=== PATIENT | male | born 1970 | race Caucasian/White ===

== ENCOUNTER 2022-07-20 11:31 | Inpatient (IN) | payer BC, SELFPAY ==
--- NOTE | ~2022-07-20 | US_ITS ---
EXAMINATION: US soft tissue LE LT DATE: 07/23/2022 14:14 INDICATION: Lateral left calf abscess. TECHNIQUE: Multiple grayscale and Doppler ultrasound images of the left lower limb were obtained. COMPARISON: None FINDINGS: In the lateral left calf, there is a heterogeneous hypoechoic mass measuring at least 9.5 x 2.0 cm. IMPRESSION: 1. Mass in the lateral left calf, consistent with abscess versus hematoma. Reviewed, dictated and finalized at location A.
[2022-07-20 11:35] VITALS: BP 135/93; PULSE 112; RESP 14; TEMP 37.3; O2SAT 100
--- NOTE | 2022-07-20 12:51 | ED.SKABFB ---
HPI - Skin/Abscess/Foreign Bdy General Chief complaint: Skin/Abscess/Foreign Body Stated complaint: R leg swelling and redness Time Seen by Provider: 07/20/22 13:24 Source: patient Mode of arrival: ambulatory Limitations: no limitations History of Present Illness HPI narrative: 51 years old white male presents with redness, swelling and pain of the left lower extremity after having a possible mosquito bite at work 1 week ago. Associated with fever, chills, lightheadedness, dizziness and weakness. Patient did not see any medical provider so far. 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 Last ibuprofen intake was last night Related Data Home Medications Medication Instructions Recorded Confirmed No Home Medications 07/20/22 07/20/22 Allergies Allergy/AdvReac Type Severity Reaction Status Date / Time bee pollen Allergy Mild Swelling Verified 07/20/22 12:47 of Lip/Tongue/Throat Review of Systems Review of Systems: All systems reviewed & are unremarkable except as noted in HPI and below PMFSH Family History Family History Other Diabetes mellitus Family history of malignant neoplasm Exam Narrative: General appearance: Well-developed, well-nourished Skin: Normal color, extensive erythematous changes, warm, tenderness of the left lower leg anteriorly with a boil like lesion at the center of it. Head: Normocephalic, nontraumatic Chest and respiratory: Airway patent, no respiratory distress, no accessory muscle use Heart: Regular rate/rhythm Vascular: Normal peripheral pulses, normal capillary refill. Musculoskeletal: Normal range of motion, nontender back Neurologic: Alert and oriented ?3, SHANK FAKER is normal as tested, no gross motor deficit Course Vital Signs Vital signs: Vital Signs Temperature 37.3 C 07/20/22 11:35 Pulse Rate 112 H 07/20/22 11:35 Respiratory Rate 14 07/20/22 11:35 Blood Pressure 135/93 H 07/20/22 11:35 Pulse Oximetry 100 07/20/22 11:35 Oxygen Delivery Room Air 07/20/22 11:35 Temperature 37.3 C 07/20/22 11:35 Pulse Rate 112 H 07/20/22 11:35 Respiratory Rate 14 07/20/22 11:35 Blood Pressure 135/93 H 07/20/22 11:35 Pulse Oximetry 100 07/20/22 11:35 Oxygen Delivery Room Air 07/20/22 11:35 MDM - Skin/Abscess/Foreign Bdy Lab Data Result diagrams: 07/20/22 13:31 07/20/22 13:31 Labs: Lab Results 07/20/22 07/20/22 Range/Units 13:31 13:31 WBC 22.0 H (4.5-10.0) K/mm3 RBC 4.78 (4.6-6.20) M/mm3 Hgb 15.1 (14.0-18.0) g/dL Hct 45.4 (42.0-52.0) % MCV 95.0 (80-100) fl MCH 31.6 (26-34) pg MCHC 33.3 (32-36) g/dl RDW 13.9 (11.5-14.5) % Plt Count 196 (150-375) k/mm3 MPV 10.6 H (7.4-10.4) fl Immature Gran % (Auto) 0.7 H (0-0.5) % Neut % (Auto) 79.9 H (45.5-73.1) % Lymph % (Auto) 4.2 L (18.3-44.2) % [place] % (Auto) 14.5 H (2.6-8.5) % Eos % (Auto) 0.3 (0-4.4) % Baso % (Auto) 0.4 (0.2-1.2) % Lymph # (Auto) 0.92 (0.9-3.2) K/mm3 [place] # (Auto) 3.2 H (0.1-0.6) K/mm3 Eos # (Auto) 0.1 (0-0.3) K/mm3 Baso # (Auto) 0.1 (0.0-0.1) K/mm3 Abs Immat Gran (auto) 0.15 H (0.00-0.031) K/mm3 Absolute Neuts (auto) 17.5 H (1.3-6.7) K/mm3 Absolute Nucleated RBC 0.0 (0.0-0.012) K/mm3 Nucleated RBC % 0.0 (0.0-0.2) % Sodium 134 L (137-145) mmol/L Potassium 4.1 (3.4-5.0) mmol/L Chloride 97 L (98-107) mmol/L Carbon Dioxide 28 (22-30) mmol/L Anion Gap 9 (8-16) mmol/L BUN 14 (9-20) mg/dL Creatinine 0.90 (0.7-1.3) mg/dL Estim Creat Clear Calc Not Reportable Estimated GF
[2022-07-20 13:36] LABS: Basophils Absolute Auto 0.1 K/mm3 (0.0-0.1); Basophils Percent Auto 0.4 % (0.2-1.2); Eosinophils Absolute Auto 0.1 K/mm3 (0-0.3); Eosinophils Percent Auto 0.3 % (0-4.4); Hematocrit 45.4 % (42.0-52.0); Hemoglobin 15.1 g/dL (14.0-18.0); Immature Granulocyte Absolute 0.15 K/mm3 (0.00-0.031); Immature Granulocyte Percent A 0.7 % (0-0.5); Lymphocytes Absolute Auto 0.92 K/mm3 (0.9-3.2); Lymphocytes Percent Auto 4.2 % (18.3-44.2); Mean Corpuscular HGB Conc 33.3 g/dl (32-36); Mean Corpuscular Hemoglobin 31.6 pg (26-34); Mean Platelet Volume 10.6 fl (7.4-10.4); Monocytes Absolute Auto 3.2 K/mm3 (0.1-0.6); Monocytes Percent Auto 14.5 % (2.6-8.5); Neutrophils Absolute Auto 17.5 K/mm3 (1.3-6.7); Neutrophils Percent Auto 79.9 % (45.5-73.1); Platelet Count Result 196 k/mm3 (150-375); Red Blood Count 4.78 M/mm3 (4.6-6.20); Red Cell Distribution Width 13.9 % (11.5-14.5)
[2022-07-20 13:46] LABS: Alanine Aminotransferase 45 U/L (6-50); Alkaline Phosphatase 119 U/L (38-126); Anion Gap 9 mmol/L (8-16); Aspartate Amino Transferase 40 U/L (17-59); Bilirubin,Total 0.4 mg/dL (0.2-1.3); Blood Urea Nitrogen 14 mg/dL (9-20); Calcium 9.2 mg/dL (8.4-10.2); Carbon Dioxide 28 mmol/L (22-30); Chloride 97 mmol/L (98-107); Estimated Glomerular Filt Rate > 60; Glucose 168 mg/dL (65-110); Potassium 4.1 mmol/L (3.4-5.0); Sodium 134 mmol/L (137-145)
--- NOTE | 2022-07-20 14:50 | PM.IMHP ---
H&P: HPI History of Present Illness Date/Time: 07/20/22 14:50 Chief Complaint: Skin abscess Narrative: Consistent 51-year-old male who stated that he had an infection to his left knee approximately 1 month ago and he completed a week's worth of antibiotics. The patient stated this past week he had a mosquito bite just below that and he scratched it. Over the last week he has been having a fever up to 102, chills, lightheadedness, dizziness and weakness. The left leg has increase in swelling and redness. The redness goes all way up to his knee from his foot. 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 The patient stated that when he had the 1st infection to the left knee, he would wear a knee pad but dirty water would get underneath of that knee pad. He is not up to date on his tetanus shot. He was taking ibuprofen for the fever and pain. He was given IV fluid, vancomycin and IV Tylenol. The patient is being admitted to inpatient services on the date of service of 07/20/2022 Review of Systems Review of Systems: See HPI All systems reviewed & are unremarkable except as noted in HPI and below Constitutional: Constitutional: Reports as per HPI and Reports no additional constitutional complaints Eyes: Eyes: Reports as per HPI and Reports no additional eye complaints ENT: Reports system reviewed and no additional complaints, except as documented and Reports Normal hearing present Cardiovascular: Cardiovascular: Reports no additional cardiovascular complaints Respiratory: Respiratory: Reports no additional respiratory complaints and Reports no additional respiratory complaints Gastrointestinal: Gastrointestinal: Reports as per HPI and Reports no additional gastrointestinal complaints Musculoskeletal: Musculoskeletal: Reports no additional musculoskeletal complaints Integumentary/Breasts: Skin/Breast: Reports system reviewed and no additional complaints, except as docu and Reports as per HPI Neurologic: Reports system reviewed and no additional complaints, except as documented, Reports as per HPI and Reports Normal hearing present Psychiatric: Psychiatric: Reports no additional psychiatric complaints and Reports as per HPI Endocrine: Endocrine: Reports no additional endocrine complaints Hematologic/Lymphatic: Hematologic/Lymphatic: Reports no additional hematologic/lymphatic complaints Allergic/Immunologic: Allergic/Immunologic: Reports no additional allergic/immunologic complaints [facility] Past Medical History Medical History (Updated 07/20/22 @ 15:48 by Tran Duran NP) Cellulitis Skin cancer screening Surgical History Surgical History (Updated 07/20/22 @ 15:31 by Tran Duran NP) No pertinent past surgical history Family History Family History Other Diabetes mellitus Family history of malignant neoplasm Social History Social History (Updated 07/20/22 @ 15:32 by Tran Duran NP) Social History: 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 He is with 1child. He is Social drinker. He denies smoking marijuana or illicit drugs. His is the durable power document review attorney for healthcare. Code status full code Smoking status: Never smoker Meds Home Medications and Allergies Home Medications Medication Instructions Recorded Confirmed Type No Home Medications 07/20/22 07/20/22 History Allergies Allergy/AdvReac Type Severity Reaction Status Date / Time bee pollen Allergy Mild Swelling Verified 07/20/22 12:47 of Lip/Tongue/Throat Vital Signs Vital Signs - 24 hr 07/20/22 11:35 Temperature 37.3 C Pulse Rate 112 H Respiratory Rate 14 Blood Pressure 135/93 H Pulse Oximetry 100 Oxygen Delivery Room Air Exam Const: General: cooperative, comfortable, no acute distress, well developed, alert, awake, Physically active and ill appearing Nutritional Appearance: average body habitus and
[2022-07-20 15:12] VITALS: BP 142/86; PULSE 102; RESP 16; TEMP 37.4; O2SAT 97
[2022-07-20 15:23] LABS: Lactic Acid Reflex 1.6 mmol/L (0.7-2.0)
[2022-07-20 15:58] LABS: CRP 40.9 mg/dL (<1.0)
[2022-07-20] MEDS: TETANUS,DIPHTHERIA,AC PERTUSSIS ADULT (0.5 ML) BOOSTRIX IM (16:16)
[2022-07-20 16:48] VITALS: BMI 30.4
--- NOTE | 2022-07-20 16:48 | PC.NURSE ---
This patient, Chalo Burch, was admitted to Medical Room 258-01. Patient/family oriented to hospital policies and general routines including ID bracelet, bed and alarms, visiting hours, pain management, procedures, bathroom and other care routines, personal items, smoking policy, room service/diet, and visiting hours. Information on how to activate the Rapid Response Team has been discussed. Patient/Family are encouraged to report perceived risks to care and to ask questions if they do not understand what they are told or what they should do.
[2022-07-20] MEDS: SODIUM CHLORIDE 0.9% IV 1,000 ML 125 ML IV CONT (16:59)
[2022-07-20] MEDS: metroNIDAZOLE 500 MG/ISO 100ML 500 MG/100 ML BAG 100 MG IVPB (17:00)
[2022-07-20 17:23] LABS: Glucose Point of Care 142 mg/dl (65-105)
[2022-07-20 17:26] VITALS: BP 128/80; PULSE 106; RESP 16; TEMP 36.4; O2SAT 97
[2022-07-20 21:39] VITALS: BP 103/59; PULSE 100; RESP 20; TEMP 36.3; O2SAT 98
[2022-07-21] MEDS: metroNIDAZOLE 500 MG/ISO 100ML 500 MG/100 ML BAG 100 MG IVPB ×3 (00:56→15:19)
[2022-07-21 05:42] LABS: Basophils Absolute Auto 0.1 K/mm3 (0.0-0.1); Basophils Percent Auto 0.3 % (0.2-1.2); Eosinophils Absolute Auto 0.2 K/mm3 (0-0.3); Hemoglobin 13.5 g/dL (14.0-18.0); Immature Granulocyte Absolute 0.29 K/mm3 (0.00-0.031); Immature Granulocyte Percent A 1.5 % (0-0.5); Lymphocytes Absolute Auto 1.42 K/mm3 (0.9-3.2); Lymphocytes Percent Auto 7.5 % (18.3-44.2); Mean Corpuscular HGB Conc 33.8 g/dl (32-36); Mean Corpuscular Volume 94.8 fl (80-100); Mean Platelet Volume 10.2 fl (7.4-10.4); Monocytes Absolute Auto 3.1 K/mm3 (0.1-0.6); Monocytes Percent Auto 16.3 % (2.6-8.5); Neutrophils Absolute Auto 13.9 K/mm3 (1.3-6.7); Neutrophils Percent Auto 73.4 % (45.5-73.1); Platelet Count Result 187 k/mm3 (150-375); Red Blood Count 4.22 M/mm3 (4.6-6.20); Red Cell Distribution Width 13.8 % (11.5-14.5); White Blood Count 18.9 K/mm3 (4.5-10.0)
[2022-07-21 05:54] LABS: Alanine Aminotransferase 37 U/L (6-50); Albumin Level 3.4 g/dL (3.5-5.1); Alkaline Phosphatase 118 U/L (38-126); Anion Gap 8 mmol/L (8-16); Aspartate Amino Transferase 27 U/L (17-59); Bilirubin,Total 0.5 mg/dL (0.2-1.3); Blood Urea Nitrogen 11 mg/dL (9-20); Calcium 8.1 mg/dL (8.4-10.2); Carbon Dioxide 25 mmol/L (22-30); Chloride 101 mmol/L (98-107); Estimated CRCL calculation 105 ml/min; Estimated Glomerular Filt Rate > 60; Glucose 135 mg/dL (65-110); Potassium 3.7 mmol/L (3.4-5.0); Sodium 134 mmol/L (137-145)
[2022-07-21 06:00] VITALS: BP 118/65; PULSE 94; RESP 20; TEMP 36.9; O2SAT 98
[2022-07-21 06:05] LABS: Hemoglobin A1C 5.8 % (<5.7)
[2022-07-21] MEDS: ENOXAPARIN 40 MG/0.4 ML SYRINGE SUB-Q (08:00)
[2022-07-21 08:11] LABS: Glucose Point of Care 115 mg/dl (65-105)
[2022-07-21 11:49] LABS: Glucose Point of Care 212 mg/dl (65-105)
[2022-07-21] MEDS: HYDROcodone/acetaminophen (*CRX) 5-325 MG TABLET 1 TAB PO (12:10)
[2022-07-21] MEDS: INSULIN ASPART (*BKC) 100 UNITS/ML SUB-Q (12:11)
[2022-07-21 14:00] VITALS: BP 109/60; PULSE 96; RESP 16; TEMP 36.8; O2SAT 98
--- NOTE | 2022-07-21 16:58 | PM.IMPN ---
Progress Note: A&P Assessment and Plan (1) Cellulitis: Code(s): L03.90 - Cellulitis, unspecified Status: Acute Assessment and Plan: Cellulitis of left lower extremity. 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 Continue to monitor CBC. Trend CRP. Patient remains afebrile. (2) Pre-diabetes: Code(s): R73.03 - Prediabetes Status: Acute Assessment and Plan: Patient with elevated random blood sugar. A1c evaluated and is 5.8 Monitor blood sugars during admission Will need education regarding dietary and lifestyle changes and outpatient PCP follow-up Subjective Date/time seen: 07/21/22 16:58 Interval history: Date of service: 07/21/2022 Chalo Burch is a 51-year-old male with a history of cellulitis who is seen in follow-up for cellulitis of the left lower extremity. He endorses left leg pain today. When he is resting in bed he states it is tolerable but if he up to walk and is bearing weight on the leg he has increased pain. He states there is no drainage or wounds. His leg feels very tight and full. He denies fevers or chills but states he sleeps hot and has been waking up sweaty. Denies nausea or vomiting. He is tolerating his diet today. He denies shortness of breath, cough, chest pain, dizziness, lightheadedness, weakness. Last bowel movement was 3 days ago. He denies diarrhea. Denies urinary symptoms including dysuria or hematuria. Review of Systems Review of Systems: All systems reviewed & are unremarkable except as noted in HPI and below Exam Narrative: General: Well-nourished, well-appearing 51-year-old male, sitting up in bed, comfortable, NARD Neuro: awake, alert and oriented x4, speech clear, no focal neuro deficits noted HEENMT: normocephalic, atraumatic, EOMI, sclerae anicteric, moist oral mucosa Respiratory: clear to auscultation bilaterally, nonlabored breathing Cardio: regular rate, regular rhythm with S1-S2 Abdomen: nondistended, normoactive bowel sounds, soft, nontender to palpation Extremities: Left lower extremity is markedly erythematous with 1+ edema, warm and mildly tender to palpation, RLE no edema, erythema, or tenderness to palpation, DP pulses 2+ bilaterally Skin: small blister on proximal left anterior calf, pinpoint scab on left knee, no rashes or lesions, warm and dry Psych: appropriate mood and affect, judgment and insight intact Objective Data Vital Signs Vital Signs: Vital Signs - 24 hr 07/20/22 17:26 07/20/22 20:00 07/20/22 21:39 Temperature 97.6 F 97.4 F L Pulse Rate 106 H 100 Respiratory Rate 16 20 Blood Pressure 128/80 103/59 L Pulse Oximetry 97 98 Oxygen Delivery Room Air 07/21/22 06:00 07/21/22 07:54 07/21/22 14:00 Temperature 98.4 F 98.2 F Pulse Rate 94 96 Respiratory Rate 20 16 Blood Pressure 118/65 109/60 Pulse Oximetry 98 98 Oxygen Delivery Room Air Intake/Output Intake/Output: Intake & Output 07/18/22 07/19/22 07/20/22 07/21/22 23:59 23:59 23:59 23:59 Intake Total 440 3000 Output Total 1400 Balance 440 1600 Meds/Results Medications: Active Medications Generic Name Dose Route Start Last Admin Trade Name Freq PRN Reason Stop Dose Admin Dextrose 12.5 gm 07/20/22 16:10 Dextrose 50% 25 Gm/50 Ml Syringe IV PUSH PRN PRN Hypoglycemia Protocol Enoxaparin Sodium 40 mg 07/21/22 09:00 07/21/22 08:00 Enoxaparin 40 Mg/0.4 Ml Syringe SUB-Q 40 mg DAILY DL Administration Glucagon 1 mg 07/20/22 16:10 Glucagon For Inj 1 Mg Vial IM PRN PRN Hypoglycemia Protocol Glucose 15 gm
[2022-07-21 17:15] LABS: Glucose Point of Care 125 mg/dl (65-105)
[2022-07-21] MEDS: FUROSEMIDE INJ 40 MG/4 ML VIAL 20 MG IV PUSH (17:29)
[2022-07-21] MEDS: ACETAMINOPHEN 325 MG TABLET 650 MG PO (19:54)
[2022-07-21 21:14] LABS: Glucose Point of Care 138 mg/dl (65-105)
[2022-07-21 22:12] VITALS: BP 126/84; PULSE 103; RESP 20; TEMP 37.1; O2SAT 98
[2022-07-22 06:11] LABS: Hemoglobin 13.6 g/dL (14.0-18.0); Mean Corpuscular Hemoglobin 31.3 pg (26-34); Mean Corpuscular Volume 92.2 fl (80-100); Mean Platelet Volume 10.1 fl (7.4-10.4); Platelet Count Result 222 k/mm3 (150-375); Red Blood Count 4.34 M/mm3 (4.6-6.20); Red Cell Distribution Width 13.9 % (11.5-14.5); White Blood Count 17.1 K/mm3 (4.5-10.0)
[2022-07-22 06:22] VITALS: BP 143/88; PULSE 92; RESP 18; TEMP 36.2; O2SAT 96
[2022-07-22 07:21] LABS: Anion Gap 8 mmol/L (8-16); Blood Urea Nitrogen 12 mg/dL (9-20); Calcium 8.7 mg/dL (8.4-10.2); Carbon Dioxide 27 mmol/L (22-30); Chloride 98 mmol/L (98-107); Estimated CRCL calculation 117 ml/min; Estimated Glomerular Filt Rate > 60; Glucose 107 mg/dL (65-110); Potassium 3.9 mmol/L (3.4-5.0); Sodium 133 mmol/L (137-145)
[2022-07-22] MEDS: ENOXAPARIN 40 MG/0.4 ML SYRINGE SUB-Q (08:27)
[2022-07-22 09:04] LABS: Glucose Point of Care 130 mg/dl (65-105)
[2022-07-22 10:36] LABS: Vancomycin Trough 6.4 ug/mL (10.0-20.0)
[2022-07-22] MEDS: ACETAMINOPHEN 325 MG TABLET 650 MG PO (11:34)
[2022-07-22 12:19] LABS: Glucose Point of Care 139 mg/dl (65-105)
--- NOTE | 2022-07-22 12:34 | PM.IMPN ---
Progress Note: A&P Assessment and Plan (1) Cellulitis: Code(s): L03.90 - Cellulitis, unspecified Status: Acute Assessment and Plan: Cellulitis of left lower extremity. 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 Continue to monitor CBC. Trend CRP. Patient remains afebrile. (2) Pre-diabetes: Code(s): R73.03 - Prediabetes Status: Acute Assessment and Plan: Patient with elevated random blood sugar. A1c evaluated and is 5.8 Monitor blood sugars during admission Will need education regarding dietary and lifestyle changes and outpatient PCP follow-up Subjective Date/time seen: 07/22/22 12:34 Interval history: Date of service: 07/21/2022 Chalo Burch is a 51-year-old male with a history of cellulitis who is seen in follow-up for cellulitis of the left lower extremity. He feels okay today. He states when he is resting in bed he is comfortable but if he sits up and has his legs dangling or if he iss walking his left leg pain becomes severe up to 10/10. His pain is so severe that she becomes nauseated and dizzy. This resolves when he lays back down. He reports intermittent sweats and subjective fevers but no documented fevers. He denies abdominal pain. He reports a regular bowel movement today, denies diarrhea. Reports frequent urination after receiving Lasix yesterday. Denies dysuria or hematuria. No shortness breath, cough, chest pain, palpitations. He states his left leg has a small wound that is now draining today. He states yesterday he was laying on his side with his right leg propped over his left leg and he believes the pressure of this opened up this wound. Review of Systems Review of Systems: All systems reviewed & are unremarkable except as noted in HPI and below Exam Narrative: General: Well-nourished, well-appearing 51-year-old male, sitting up in bed, comfortable, NARD Neuro: awake, alert and oriented x4, speech clear, no focal neuro deficits noted HEENMT: normocephalic, atraumatic, EOMI, sclerae anicteric, moist oral mucosa Respiratory: clear to auscultation bilaterally, nonlabored breathing Cardio: regular rate, regular rhythm with S1-S2 Abdomen: nondistended, normoactive bowel sounds, soft, nontender to palpation Extremities: Left lower extremity is markedly erythematous with 1+ edema extending to dorsum of left foot, warm and mildly tender to palpation, left knee and thigh with no erythema or edema, RLE no edema, erythema, or tenderness to palpation, DP pulses 2+ bilaterally Skin: Half dollar sized blistered area on proximal left anterolateral calf with scant serous fluid drainage, pinpoint dried scab on left knee, no rashes or lesions, warm and dry Psych: appropriate mood and affect, judgment and insight intact Objective Data Vital Signs Vital Signs: Vital Signs - 24 hr 07/21/22 14:00 07/21/22 20:00 07/21/22 22:12 Temperature 98.2 F 98.7 F Pulse Rate 96 103 H Respiratory Rate 16 20 Blood Pressure 109/60 126/84 Pulse Oximetry 98 98 Oxygen Delivery Room Air 07/22/22 06:22 07/22/22 08:27 Temperature 97.1 F L Pulse Rate 92 Respiratory Rate 18 Blood Pressure 143/88 H Pulse Oximetry 96 Oxygen Delivery Room Air Intake/Output Intake/Output: Intake & Output 07/19/22 07/20/22 07/21/22 07/22/22 23:59 23:59 23:59 23:59 Intake Total 440 3830 2380 Output Total 2300 2400 Balance 440 1530 -20 Meds/Results Medications: Active Medications Generic Name Dose Route Start Last Admin Trade Name Kevinq PRN Reason Stop Dose Admin Acetaminophen 650 mg 07/21/22 19:35 07/22/22 11:34 Ac
[2022-07-22 13:27] LABS: CRP 23.7 mg/dL (<1.0)
[2022-07-22 13:45] VITALS: BP 134/79; PULSE 104; RESP 16; TEMP 36.6; O2SAT 99
[2022-07-22] MEDS: HYDROcodone/acetaminophen (*CRX) 5-325 MG TABLET 1 TAB PO ×2 (16:31→22:35)
[2022-07-22 16:40] LABS: Glucose Point of Care 144 mg/dl (65-105)
[2022-07-22 21:20] VITALS: BP 121/81; PULSE 103; RESP 20; TEMP 36.1; O2SAT 98
[2022-07-22 23:15] LABS: Glucose Point of Care 141 mg/dl (65-105)
[2022-07-23] MEDS: KETOROLAC 30 MG/ML VIAL (*BKC) IV PUSH ×3 (00:24→21:10)
[2022-07-23 05:51] VITALS: BP 118/75; PULSE 82; RESP 20; TEMP 36.4; O2SAT 99
[2022-07-23 05:55] LABS: Hematocrit 40.9 % (42.0-52.0); Hemoglobin 13.6 g/dL (14.0-18.0); Mean Corpuscular HGB Conc 33.3 g/dl (32-36); Mean Corpuscular Hemoglobin 31.3 pg (26-34); Mean Platelet Volume 9.7 fl (7.4-10.4); Platelet Count Result 238 k/mm3 (150-375); Red Blood Count 4.35 M/mm3 (4.6-6.20); Red Cell Distribution Width 13.8 % (11.5-14.5); White Blood Count 15.1 K/mm3 (4.5-10.0)
[2022-07-23 06:27] LABS: Anion Gap 7 mmol/L (8-16); Blood Urea Nitrogen 15 mg/dL (9-20); CRP 14.5 mg/dL (<1.0); Carbon Dioxide 29 mmol/L (22-30); Chloride 98 mmol/L (98-107); Estimated CRCL calculation 105 ml/min; Estimated Glomerular Filt Rate > 60; Glucose 129 mg/dL (65-110); Sodium 134 mmol/L (137-145)
[2022-07-23] MEDS: ENOXAPARIN 40 MG/0.4 ML SYRINGE SUB-Q (07:45)
[2022-07-23 08:36] LABS: Glucose Point of Care 118 mg/dl (65-105)
[2022-07-23 12:08] LABS: Glucose Point of Care 131 mg/dl (65-105)
--- NOTE | 2022-07-23 12:26 | PM.IMPN ---
Progress Note: A&P Assessment and Plan (1) Cellulitis: Code(s): L03.90 - Cellulitis, unspecified Status: Acute Assessment and Plan: Cellulitis of left lower extremity. Failed outpatient clindamycin Continue vancomycin and cefepime Blood cultures pending, negative to date Possible fluid collection noted on examination today. Will get ultrasound to rule out abscess. Surgical consult (2) Pre-diabetes: Code(s): R73.03 - Prediabetes Status: Acute Assessment and Plan: Patient with elevated random blood sugar. A1c evaluated and is 5.8 Monitor blood sugars during admission Will need education regarding dietary and lifestyle changes and outpatient PCP follow-up Subjective Date/time seen: 07/23/22 12:26 No complaints, feeling better Exam Narrative: General: Well-nourished, well-appearing 51-year-old male, sitting up in bed, comfortable, NARD Neuro: awake, alert and oriented x4, speech clear, no focal neuro deficits noted HEENMT: normocephalic, atraumatic, EOMI, sclerae anicteric, moist oral mucosa Respiratory: clear to auscultation bilaterally, nonlabored breathing Cardio: regular rate, regular rhythm with S1-S2 Abdomen: nondistended, normoactive bowel sounds, soft, nontender to palpation Extremities: Left lower extremity is markedly erythematous with 1+ edema extending to dorsum of left foot, warm and mildly tender to palpation, left knee and thigh with no erythema or edema, RLE no edema, erythema, or tenderness to palpation, DP pulses 2+ bilaterally Skin: Half dollar sized blistered area on proximal left anterolateral calf with scant serous fluid drainage, pinpoint dried scab on left knee, no rashes or lesions, warm and dry Psych: appropriate mood and affect, judgment and insight intact Objective Data Vital Signs Vital Signs: Vital Signs - 24 hr 07/22/22 13:45 07/22/22 21:20 07/22/22 20:00 Temperature 97.9 F 97.0 F L Pulse Rate 104 H 103 H Respiratory Rate 16 20 Blood Pressure 134/79 121/81 Pulse Oximetry 99 98 Oxygen Delivery Room Air 07/23/22 05:51 07/23/22 07:52 Temperature 97.5 F L Pulse Rate 82 Respiratory Rate 20 Blood Pressure 118/75 Pulse Oximetry 99 Oxygen Delivery Room Air Intake/Output Intake/Output: Intake & Output 07/20/22 07/21/22 07/22/22 07/23/22 23:59 23:59 23:59 23:59 Intake Total 440 3830 4210 1780 Output Total 2300 2800 1200 Balance 440 1530 1410 580 Meds/Results Medications: Active Medications Generic Name Dose Route Start Last Admin Trade Name Freq PRN Reason Stop Dose Admin Acetaminophen 650 mg 07/22/22 12:37 Acetaminophen 325 Mg Tablet PO Q4H PRN Pain 1-5 Hydrocodone Bitart/Acetaminophen 1 tab 07/23/22 00:01 Hydrocodone/Acetaminophen (*Crx) 5-325 Mg Tablet PO Q4H PRN Pain Rated 7-10 Dextrose 12.5 gm 07/20/22 16:10 Dextrose 50% 25 Gm/50 Ml Syringe IV PUSH PRN PRN Hypoglycemia Protocol Enoxaparin Sodium 40 mg 07/21/22 09:00 07/23/22 07:45 Enoxaparin 40 Mg/0.4 Ml Syringe SUB-Q 40 mg DAILY DL Administration Glucagon 1 mg 07/20/22 16:10 Glucagon For Inj 1 Mg Vial IM PRN PRN Hypoglycemia Protocol Glucose 15 gm 07/20/22 16:10 Glucose Oral Gel 15 Gm Of Glucse In 37.5 Gm Tube PO PRN PRN Hypoglycemia Protocol Cefepime HCl 2 gm in 50 mls @ 100 mls/hr 07/20/22 21:00 07/23/22 07:45 Maxipime 2 Gm/D5w 50 Ml IVPB 07/30/22 09:29 100 mls/hr Q12HR DL Administration Dextrose 1,000 mls @ 100 mls/hr 07/20/22 16:10 Dextrose 5% 1,000 Ml IVPB PRN PRN Hypoglycemia Protocol Vancomycin HCl 1,500 mg in 500 mls @ 333.333 mls/hr 07/22/22 12:00 07/23/22 06:54 Vancomycin 1,500 Mg/D5w 500 Ml IVPB Infused Q8H DL Infusion Insulin Aspart 2 - 5 units 07/20/22 17:00 07/23/22 12:10 Insulin Aspart (*Bkc) 100 Units/Ml SUB-Q Not Given TIDWM DL Protocol Ketorolac Tr
[2022-07-23 14:10] VITALS: BP 118/69; PULSE 88; RESP 16; TEMP 36.2; O2SAT 98
--- NOTE | 2022-07-23 15:44 | PM.CNGS ---
Assessment and Plan Assessment and plan (1) Abscess of left leg: Code(s): L02.416 - Cutaneous abscess of left lower limb Status: Acute Assessment and Plan: Exam and soft tissue ultrasound consistent with left lower lateral leg abscess. Recommend proceeding with incision and drainage in the OR. Description of the procedure, risks, benefits, and expected wound care/recovery post-op were discussed with the patient in detail. All questions were answered. We will make the patient NPO after midnight and try adding him onto the surgery schedule tomorrow. Continue IV antibiotics. Cultures pending. (2) Cellulitis: Code(s): L03.90 - Cellulitis, unspecified Status: Acute Assessment and Plan: Overall cellulitis is improving. He has now developed a left lower leg abscess evident on exam and ultrasound. See plan above. Continue broad-spectrum IV antibiotics. Wound culture pending. Elevate left lower extremity. (3) Pre-diabetes: Code(s): R73.03 - Prediabetes Status: Acute Assessment and Plan: Elevated blood glucose noted on admission, hgb A1C 5.8. Recommend dietary and lifestyle modifications. Plan I have discussed the patient's case and plan of care with Dr. Cordon. Thank you for allowing us to see the patient in consultation and we will continue to follow along with you. History of Present Illness Consult details Consult date: 07/23/22 Reason for consult: other (Left lower leg cellulitis and possible abscess) Requesting physician: Giuseppe Langston MD Narrative: This is a 51-year-old male who presented to the ER with complaints of left lower extremity swelling, pain, and redness. He reports having a mosquito bite just below his left knee on his anterior lower leg that he first noticed 9 days ago. He scraped the top of the skin off over the mosquito bite and went to work. 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 Over the next few days, he had generalized malaise and felt feverish but never took his temperature. About 7 days ago, he began to notice swelling of the left lower leg. Over the next few days the swelling worsened and he started to notice redness. The area just below the knee that was an open wound began draining a few days ago. Due to his worsening symptoms, he presented to an urgent care and was instructed to go to the ED on 07/20/2022. [place] [id number]. He was found to have left lower extremity cellulitis and was admitted to the hospitalist service. He is on IV cefepime and vancomycin. Blood cultures were drawn and are pending. Yesterday, they obtained a wound culture of the left leg. His WBC count has been trending down and his cellulitis has come down in size, but he has developed an area on the left lateral lower leg that is concerning for an abscess. Our service has been consulted today. He had a soft tissue ultrasound of the left lower extremity today that showed a mass in the left lateral calf consistent with an abscess versus hematoma. The patient is now seen on the medical floor. Denies any history of MRSA. He does report having a wound on his left knee that was infected about 3 weeks ago. He had his pop what sounds like an abscess and ?picked out pus with tweezers?. He went to urgent care and was started on antibiotics. He reports this was completely healed before having the most recent episode of cellulitis. No history of diabetes and hemoglobin A1c checked on this admission was 5.8. Review of Systems Review of Systems: All systems reviewed & are unremarkable except as noted in HPI and below PMFSH Past Medical History Medical History Cellulitis Skin cancer screening Surgical History Surgical History No pertinent past surgical history
[2022-07-23] MEDS: HYDROcodone/acetaminophen (*CRX) 5-325 MG TABLET 1 TAB PO (17:03)
[2022-07-23 17:11] LABS: Glucose Point of Care 147 mg/dl (65-105)
[2022-07-23 19:42] VITALS: BP 118/80; PULSE 96; RESP 16; TEMP 37.3; O2SAT 97
[2022-07-23 21:23] LABS: Glucose Point of Care 124 mg/dl (65-105)
[2022-07-24] VITALS (10 sets, daily range): BP systolic 113–128; BP diastolic 73–94; PULSE 69–101; RESP 12–18; TEMP 35.8–36.8; O2SAT 95–100
[2022-07-24 05:48] LABS: Hematocrit 39.4 % (42.0-52.0); Hemoglobin 13.2 g/dL (14.0-18.0); Mean Corpuscular HGB Conc 33.5 g/dl (32-36); Mean Corpuscular Hemoglobin 31.4 pg (26-34); Mean Corpuscular Volume 93.6 fl (80-100); Mean Platelet Volume 9.4 fl (7.4-10.4); Platelet Count Result 276 k/mm3 (150-375); Red Blood Count 4.21 M/mm3 (4.6-6.20); Red Cell Distribution Width 14.1 % (11.5-14.5); White Blood Count 14.9 K/mm3 (4.5-10.0)
[2022-07-24 06:10] LABS: Estimated CRCL calculation 105 ml/min; Estimated Glomerular Filt Rate > 60
[2022-07-24 08:52] LABS: Glucose Point of Care 146 mg/dl (65-105)
[2022-07-24] MEDS: ACETAMINOPHEN 325 MG TABLET 650 MG PO (08:54)
--- NOTE | 2022-07-24 09:56 | PC.NURSE ---
This nurse spoke with Ophelia in Preop. Ok to hold patients Lovenox and Novolog for procedure.
--- NOTE | 2022-07-24 10:30 | PM.IMPN ---
Progress Note: A&P Assessment and Plan (1) Cellulitis: Code(s): L03.90 - Cellulitis, unspecified Status: Acute Assessment and Plan: Cellulitis of left lower extremity. Failed outpatient clindamycin Continue vancomycin and cefepime Blood cultures pending, negative to date Plan for I&D. Cultures noted. Continue IV antibiotics (2) Pre-diabetes: Code(s): R73.03 - Prediabetes Status: Acute Assessment and Plan: Patient with elevated random blood sugar. A1c evaluated and is 5.8 Monitor blood sugars during admission Will need education regarding dietary and lifestyle changes and outpatient PCP follow-up Subjective Date/time seen: 07/24/22 10:30 No complaints Exam Narrative: General: Well-nourished, well-appearing 51-year-old male, sitting up in bed, comfortable, NARD Neuro: awake, alert and oriented x4, speech clear, no focal neuro deficits noted HEENMT: normocephalic, atraumatic, EOMI, sclerae anicteric, moist oral mucosa Respiratory: clear to auscultation bilaterally, nonlabored breathing Cardio: regular rate, regular rhythm with S1-S2 Abdomen: nondistended, normoactive bowel sounds, soft, nontender to palpation Extremities: Left lower extremity is markedly erythematous with 1+ edema extending to dorsum of left foot, warm and mildly tender to palpation, left knee and thigh with no erythema or edema, RLE no edema, erythema, or tenderness to palpation, DP pulses 2+ bilaterally Skin: Half dollar sized blistered area on proximal left anterolateral calf with scant serous fluid drainage, pinpoint dried scab on left knee, no rashes or lesions, warm and dry Psych: appropriate mood and affect, judgment and insight intact Objective Data Vital Signs Vital Signs: Vital Signs - 24 hr 07/23/22 14:10 07/23/22 19:42 07/24/22 04:27 Temperature 97.1 F L 99.2 F 98.3 F Pulse Rate 88 96 93 Respiratory Rate 16 16 16 Blood Pressure 118/69 118/80 119/75 Pulse Oximetry 98 97 96 Intake/Output Intake/Output: Intake & Output 07/21/22 07/22/22 07/23/22 07/24/22 23:59 23:59 23:59 23:59 Intake Total 3830 4210 4910 550 Output Total 2300 2800 1850 600 Balance 1530 1410 3060 -50 Meds/Results Medications: Active Medications Generic Name Dose Route Start Last Admin Trade Name Freq PRN Reason Stop Dose Admin Acetaminophen 650 mg 07/22/22 12:37 07/24/22 08:54 Acetaminophen 325 Mg Tablet PO 650 mg Q4H PRN Administration Pain 1-5 Hydrocodone Bitart/Acetaminophen 1 tab 07/23/22 00:01 07/23/22 17:03 Hydrocodone/Acetaminophen (*Crx) 5-325 Mg Tablet PO 1 tab Q4H PRN Administration Pain Rated 7-10 Dextrose 12.5 gm 07/20/22 16:10 Dextrose 50% 25 Gm/50 Ml Syringe IV PUSH PRN PRN Hypoglycemia Protocol Enoxaparin Sodium 40 mg 07/21/22 09:00 07/24/22 08:54 Enoxaparin 40 Mg/0.4 Ml Syringe SUB-Q Not Given DAILY DL Glucagon 1 mg 07/20/22 16:10 Glucagon For Inj 1 Mg Vial IM PRN PRN Hypoglycemia Protocol Glucose 15 gm 07/20/22 16:10 Glucose Oral Gel 15 Gm Of Glucse In 37.5 Gm Tube PO PRN PRN Hypoglycemia Protocol Cefepime HCl 2 gm in 50 mls @ 100 mls/hr 07/20/22 21:00 07/24/22 09:30 Maxipime 2 Gm/D5w 50 Ml IVPB 07/30/22 09:29 Infused Q12HR LD Infusion Dextrose 1,000 mls @ 100 mls/hr 07/20/22 16:10 Dextrose 5% 1,000 Ml IVPB PRN PRN Hypoglycemia Protocol Vancomycin HCl 1,750 mg in 500 mls @ 250 mls/hr 07/23/22 14:00 07/24/22 08:00 Vancomycin 1,750 Mg/D5w 500 Ml IVPB Infused Q8H DL Infusion Insulin Aspart 2 - 5 units 07/20/22 17:00 07/24/22 08:52 Insulin Aspart (*Bkc) 100 Units/Ml SUB-Q Not Given TIDWM DL Protocol Polyethylene Glycol 17 gm 07/21/22 17:08 Polyethylene Glycol 3350 17 Gm Powd.Pack PO QAM PRN Constipation Radiology Results: ITS Impressions Soft Tissue Ultrasound 07/23/22 14:19 IMPRESSI
[2022-07-24 12:16] LABS: Glucose Point of Care 96 mg/dl (65-105)
--- NOTE | 2022-07-24 13:26 | PC.NURSE ---
To OR per [stretcher ], IV [saline locked ]. Report given to [Ophelia ].
--- NOTE | 2022-07-24 13:36 | WPDANESEPPF ---
Anes - Initial Pre Proc Eval Procedure: Operation Date: 07/24/22 14:30 Proposed Procedures p Incision And Drainage Left Lower Extremity Abscess - Dahiana Cordon MD Date/Time: 07/24/22 13:36 Surgeon: Rohith Mackay MD Pre Op Diagnosis: Left lower extremity cellulitis Patient Data Age: 51 Gender: M Height: 1.83 m Weight: 101.6 kg Last Vital Signs Temp 36.8 C 07/24/22 04:27 Pulse 93 07/24/22 04:27 Resp 16 07/24/22 04:27 BP 119/75 07/24/22 04:27 Pulse Ox 96 07/24/22 04:27 O2 Del Method Room Air 07/24/22 08:00 Allergies Allergy/AdvReac Type Severity Reaction Status Date / Time bee pollen Allergy Mild Swelling Verified 07/20/22 12:47 of Lip/Tongue/Throat Home Medications Medication Instructions Recorded Confirmed Type No Home Medications 07/20/22 07/20/22 History Laboratory Tests 07/23/22 07/23/22 07/24/22 17:04 21:12 05:26 WBC RBC Hgb Hct MCV MCH MCHC RDW Plt Count MPV Creatinine 0.90 mg/dL mg/dL (0.7-1.3) Estim Creat Clear Calc 105 ml/min ml/min Estimated GFR > 60 (59 - ) POC Capillary Glucose 147 mg/dl H mg/dl 124 mg/dl H mg/dl (65-105) (65-105) Vancomycin Trough 07/24/22 07/24/22 07/24/22 05:26 08:40 12:11 WBC 14.9 K/mm3 H K/mm3 (4.5-10.0) RBC 4.21 M/mm3 L M/mm3 (4.6-6.20) Hgb 13.2 g/dL L g/dL (14.0-18.0) Hct 39.4 % L % (42.0-52.0) MCV 93.6 fl fl (80-100) MCH 31.4 pg pg (26-34) MCHC 33.5 g/dl g/dl (32-36) RDW 14.1 % % (11.5-14.5) Plt Count 276 k/mm3 k/mm3 (150-375) MPV 9.4 fl fl (7.4-10.4) Creatinine Estim Creat Clear Calc Estimated GFR POC Capillary Glucose 146 mg/dl H mg/dl 96 mg/dl mg/dl (65-105) (65-105) Vancomycin Trough 07/24/22 12:49 WBC RBC Hgb Hct MCV MCH MCHC RDW Plt Count MPV Creatinine Estim Creat Clear Calc Estimated GFR POC Capillary Glucose Vancomycin Trough Pending Patient hx anesthesia problems: none Family hx anesthesia problems: none Results Review: All pre-operative results and documents have been reviewed as part of the pre-operative evaluation. 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 He is with 1child. He is Social drinker. He denies smoking marijuana or illicit drugs. His is the durable power commercial attorney for healthcare. Code status full code Smoking status: Never smoker Alcohol intake: current Drinks per week: 2 Substance use: current Substance use type: marijuana Last use: Last week Spiritual care concerns: No Anes - Eval Final PreProcedure Day of Procedure 07/24/22 13:36 Patient weight: obese Heart: regular rate and rhythm Lungs: clear to auscultation and normal air movement Airway: Mallampati scale class II Neurological: alert and oriented Last oral intake: >/= 8 hours ASA classification: II Emergent: no Anesthetic plan: proceed Anesthesia type and monitoring: general GIVS and LMA Results Review: All pre-operative results and documents have been reviewed as part of the pre-operative evaluation.
[2022-07-24 14:18] LABS: Vancomycin Trough 15.7 ug/mL (10.0-20.0)
--- NOTE | 2022-07-24 14:41 | WPDHPUPDATE1 ---
History and Physical Update Update Date/Time: 07/24/22 14:41 History and Physical has been reviewed, including an updated exam of the patient. There are NO changes in the patient's condition. Risks, benefits, and alternatives have been discussed and questions answered. Patient agrees to proceed with procedure.
[2022-07-24] MEDS: LACTATED RINGERS 1,000 ML 30 ML IV CONT (15:45)
[2022-07-24 16:17] LABS: Glucose Point of Care 128 mg/dl (65-105)
--- NOTE | 2022-07-24 16:30 | W.PM.PROC2 ---
Procedure Note - Detailed Date of Procedure 07/24/22 Pre-op Diagnosis Left lower extremity abscess Post-op Diagnosis Other ( Necrotizing soft tissue infection left lower extremity) Procedure Performed complex incision and drainage necrotizing soft tissue infection left lower extremity measuring 15 x 10 cm Surgeon Dahiana Cordon MD Anesthesia General Indications 51-year-old male presenting with left lower extremity abscess, cellulitis worsening over the last week Findings 15 x 10 cm abscess cavity with necrosis of the soft tissue Description of Procedure The patient was taken the operating room and placed in the supine position. After adequate induction of general anesthesia, the patient was prepped and draped in the normal sterile fashion. A time-out was then done to verify the patient's identity, as well as the procedure being performed. I then localized the tissue over the most fluctuant area of this abscess, located on the lateral portion of the calf in the left lower extremity. Of note, there was a punctate opening that was draining some purulent material and I did make the incision over this area. Once the area was opened, a copious amount of purulent drainage was noted. Sterile cultures were then obtained. Approximately 200 mL of purulent material was drained from this cavity. The cavity extended inferiorly towards the ankle and laterally towards the posterior calf. There was also noted necrosis of the subcutaneous tissue creating a plane between the subcutaneous tissue and skin and the underlying fascia and muscle. The infection did not seem to extend into the fascia or muscle. I used the hemostat as well as the suction device to break up further loculation and drained further purulent material. Once the area was completely open and drained, it measured approximately 15 x 10 cm. I then packed the area with 1 in iodoform to keep the area open and draining. Sterile dressing was then placed. The patient tolerated the procedure well and was extubated in the operating room postoperative. He will be transferred to the recovery room in stable condition. Implants 1 in iodoform packing Estimated Blood Loss 10 Urine Output 600 Packing Yes Pathology None sent Complications No immediate complications Condition Stable Disposition PACU [facility] Billing Surgery - Charge Forward: Surgery Billing
[2022-07-24 17:35] LABS: Glucose Point of Care 157 mg/dl (65-105)
--- NOTE | 2022-07-24 17:44 | PC.NURSE ---
Returned from OR per [stretcher at 17:35]. Report received from [Adams ].
[2022-07-24 20:58] LABS: Glucose Point of Care 270 mg/dl (65-105)
[2022-07-25 04:53] VITALS: BP 102/66; PULSE 65; RESP 20; TEMP 36.4; O2SAT 99
[2022-07-25 04:56] LABS: Hematocrit 38.8 % (42.0-52.0); Mean Corpuscular HGB Conc 33.5 g/dl (32-36); Mean Corpuscular Hemoglobin 31.3 pg (26-34); Mean Corpuscular Volume 93.5 fl (80-100); Mean Platelet Volume 9.5 fl (7.4-10.4); Platelet Count Result 331 k/mm3 (150-375); Red Blood Count 4.15 M/mm3 (4.6-6.20); Red Cell Distribution Width 13.7 % (11.5-14.5); White Blood Count 13.6 K/mm3 (4.5-10.0)
[2022-07-25 05:17] LABS: Anion Gap 5 mmol/L (8-16); Blood Urea Nitrogen 14 mg/dL (9-20); Calcium 8.9 mg/dL (8.4-10.2); Carbon Dioxide 27 mmol/L (22-30); Chloride 101 mmol/L (98-107); Estimated CRCL calculation 133 ml/min; Estimated Glomerular Filt Rate > 60; Glucose 136 mg/dL (65-110); Sodium 133 mmol/L (137-145)
--- NOTE | 2022-07-25 08:34 | WPDANESPN ---
Anes - Prog Note Post-Op Date/Time: 07/25/22 08:34 Cardiovascular status: normal Respiratory status: normal Airway patency: baseline Mental status: baseline Post-Op hydration status: normal Vital Signs: Last Vital Signs Temp 36.4 C 07/25/22 04:53 Pulse 65 07/25/22 04:53 Resp 20 07/25/22 04:53 BP 102/66 07/25/22 04:53 Pulse Ox 99 07/25/22 04:53 O2 Del Method Room Air 07/24/22 17:05 O2 Flow Rate 8 07/24/22 16:20 Pain Score (VAS): 12/09 I/O: Intake & Output 07/24/22 07/25/22 07/25/22 23:59 07:59 15:59 Intake Total 2240 490 Output Total 975 2200 Balance 1265 -1710 Laboratory Tests 07/25/22 04:38 07/25/22 04:38 07/24/22 07/24/22 07/24/22 08:40 12:11 12:49 WBC RBC Hgb Hct MCV MCH MCHC RDW Plt Count MPV Sodium Potassium Chloride Carbon Dioxide Anion Gap BUN Creatinine Estim Creat Clear Calc Estimated GFR Glucose POC Capillary Glucose 146 H 96 Calcium Vancomycin Trough 15.7 07/24/22 07/24/22 07/24/22 16:14 17:31 20:54 WBC RBC Hgb Hct MCV MCH MCHC RDW Plt Count MPV Sodium Potassium Chloride Carbon Dioxide Anion Gap BUN Creatinine Estim Creat Clear Calc Estimated GFR Glucose POC Capillary Glucose 128 H 157 H 270 H Calcium Vancomycin Trough 07/25/22 07/25/22 04:38 04:38 WBC 13.6 H RBC 4.15 L Hgb 13.0 L Hct 38.8 L MCV 93.5 MCH 31.3 MCHC 33.5 RDW 13.7 Plt Count 331 MPV 9.5 Sodium 133 L Potassium 5.0 Chloride 101 Carbon Dioxide 27 Anion Gap 5 L BUN 14 Creatinine 0.70 Estim Creat Clear Calc 133 Estimated GFR > 60 Glucose 136 H POC Capillary Glucose Calcium 8.9 Vancomycin Trough Microbiology 07/22/22 13:25 Leg Left Wound Culture - Preliminary Staphylococcus aureus Post-procedural complaints: none Patient Feedback: Patient satisfied with anesthetic care.
[2022-07-25 08:35] LABS: Glucose Point of Care 212 mg/dl (65-105)
[2022-07-25] MEDS: ENOXAPARIN 40 MG/0.4 ML SYRINGE SUB-Q (08:53)
[2022-07-25] MEDS: INSULIN ASPART (*BKC) 100 UNITS/ML SUB-Q (08:54)
[2022-07-25 09:13] VITALS: RESP 20; O2SAT 99
--- NOTE | 2022-07-25 10:15 | PM.IMPN ---
Progress Note: A&P Assessment and Plan (1) Cellulitis: Code(s): L03.90 - Cellulitis, unspecified Status: Acute Assessment and Plan: Cellulitis of left lower extremity. Failed outpatient clindamycin Continue IV antibiotics Blood cultures pending, negative to date Plan for I&D. Cultures noted. Continue IV antibiotics (2) Pre-diabetes: Code(s): R73.03 - Prediabetes Status: Acute Assessment and Plan: Patient with elevated random blood sugar. A1c evaluated and is 5.8 Monitor blood sugars during admission Will need education regarding dietary and lifestyle changes and outpatient PCP follow-up Subjective Date/time seen: 07/25/22 10:15 no new complaints Exam Narrative: General: Well-nourished, well-appearing 51-year-old male, sitting up in bed, comfortable, NARD Neuro: awake, alert and oriented x4, speech clear, no focal neuro deficits noted HEENMT: normocephalic, atraumatic, EOMI, sclerae anicteric, moist oral mucosa Respiratory: clear to auscultation bilaterally, nonlabored breathing Cardio: regular rate, regular rhythm with S1-S2 Abdomen: nondistended, normoactive bowel sounds, soft, nontender to palpation Extremities: Left lower extremity is markedly erythematous with 1+ edema extending to dorsum of left foot, warm and mildly tender to palpation, left knee and thigh with no erythema or edema, RLE no edema, erythema, or tenderness to palpation, DP pulses 2+ bilaterally Skin: Half dollar sized blistered area on proximal left anterolateral calf with scant serous fluid drainage, pinpoint dried scab on left knee, no rashes or lesions, warm and dry Psych: appropriate mood and affect, judgment and insight intact Objective Data Vital Signs Vital Signs: Vital Signs - 24 hr 07/24/22 13:30 07/24/22 16:05 07/24/22 16:20 Temperature 97.8 F 98.1 F Pulse Rate 87 101 H 85 Respiratory Rate 16 12 15 Blood Pressure 127/89 124/94 H 118/92 H Pulse Oximetry 98 100 98 Oxygen Delivery Room Air Simple Face Mask Simple Face Mask Oxygen Flow Rate 8 8 07/24/22 16:35 07/24/22 16:50 07/24/22 17:05 Temperature Pulse Rate 84 80 77 Respiratory Rate 12 16 13 Blood Pressure 118/89 113/86 117/91 H Pulse Oximetry 95 97 95 Oxygen Delivery Room Air Room Air Room Air Oxygen Flow Rate 07/24/22 17:30 07/24/22 17:45 07/24/22 20:41 Temperature 97.8 F 97.7 F 96.5 F L Pulse Rate 69 83 80 Respiratory Rate 16 16 18 Blood Pressure 119/82 128/82 117/73 Pulse Oximetry 99 98 98 Oxygen Delivery Oxygen Flow Rate 07/25/22 04:53 07/25/22 09:13 Temperature 97.6 F Pulse Rate 65 Respiratory Rate 20 20 Blood Pressure 102/66 Pulse Oximetry 99 99 Oxygen Delivery Room Air Oxygen Flow Rate Intake/Output Intake/Output: Intake & Output 07/22/22 07/23/22 07/24/22 07/25/22 23:59 23:59 23:59 23:59 Intake Total 4210 4910 2840 1760 Output Total 2800 1850 1575 2200 Balance 1410 3060 1265 -440 Meds/Results Medications: Active Medications Generic Name Dose Route Start Last Admin Trade Name Freq PRN Reason Stop Dose Admin Acetaminophen 650 mg 07/22/22 12:37 07/24/22 08:54 Acetaminophen 325 Mg Tablet PO 650 mg Q4H PRN Administration Pain 1-5 Hydrocodone Bitart/Acetaminophen 1 tab 07/23/22 00:01 07/23/22 17:03 Hydrocodone/Acetaminophen (*Crx) 5-325 Mg Tablet PO 1 tab Q4H PRN Administration Pain Rated 7-10 Dextrose 12.5 gm 07/20/22 16:10 Dextrose 50% 25 Gm/50 Ml Syringe IV PUSH PRN PRN Hypoglycemia Protocol Enoxaparin Sodium 40 mg 07/21/22 09:00 07/25/22 08:53 Enoxaparin 40 Mg/0.4 Ml Syringe SUB-Q 40 mg DAILY DL Administration Glucagon 1 mg 07/20/22 16:10 Glucagon For Inj 1 Mg Vial IM PRN PRN Hypoglycemia Protocol Glucose 15 gm 07/20/22 16:10 Glucose Oral Gel 15 Gm Of Glucse In 37.5 Gm Tube PO PRN PRN Hypoglycemia Protocol Cefepime HCl 2 gm in 50 mls @ 100
[2022-07-25] MEDS: HYDROcodone/acetaminophen (*CRX) 5-325 MG TABLET 1 TAB PO ×2 (10:49→20:18)
--- NOTE | 2022-07-25 10:51 | PM.PNGS ---
Progress Note: A&P Assessment and Plan (1) Necrotizing soft tissue infection: Code(s): M79.89 - Other specified soft tissue disorders Status: Acute Assessment and Plan: much improved, cont local wound care, cx reviewed and c/w MRSA, agree c Rocephin and Vanc Subjective Subjective Date/Time Seen: 07/25/22 10:51 feels much better, very little pain Review of Systems Review of Systems: All systems reviewed & are unremarkable except as noted in HPI and below Exam Const: General: cooperative, comfortable and no acute distress Resp: Auscultation: clear to auscultation bilaterally Cardio: Rate: regular rate Rhythm: regular rhythm GI: Inspection: normal to inspection Skin: Other: LLE - unpacked, good drainage, significantly decreased induration, redness Objective Data Vital Signs Vital Signs: Vital Signs - 24 hr 07/24/22 13:30 07/24/22 16:05 07/24/22 16:20 Temperature 36.6 C 36.7 C Pulse Rate 87 101 H 85 Respiratory Rate 16 12 15 Blood Pressure 127/89 124/94 H 118/92 H Pulse Oximetry 98 100 98 Oxygen Delivery Room Air Simple Face Mask Simple Face Mask Oxygen Flow Rate 8 8 07/24/22 16:35 07/24/22 16:50 07/24/22 17:05 Temperature Pulse Rate 84 80 77 Respiratory Rate 12 16 13 Blood Pressure 118/89 113/86 117/91 H Pulse Oximetry 95 97 95 Oxygen Delivery Room Air Room Air Room Air Oxygen Flow Rate 07/24/22 17:30 07/24/22 17:45 07/24/22 20:41 Temperature 36.6 C 36.5 C 35.8 C L Pulse Rate 69 83 80 Respiratory Rate 16 16 18 Blood Pressure 119/82 128/82 117/73 Pulse Oximetry 99 98 98 Oxygen Delivery Oxygen Flow Rate 07/25/22 04:53 07/25/22 09:13 Temperature 36.4 C Pulse Rate 65 Respiratory Rate 20 20 Blood Pressure 102/66 Pulse Oximetry 99 99 Oxygen Delivery Room Air Oxygen Flow Rate Intake/Output Intake/Output: Intake & Output 07/22/22 07/23/22 07/24/22 07/25/22 23:59 23:59 23:59 23:59 Intake Total 4210 4910 2840 1760 Output Total 2800 1850 1575 2200 Balance 1410 3060 1265 -440 Meds/Results Medications: Active Medications Generic Name Dose Route Start Last Admin Trade Name Freq PRN Reason Stop Dose Admin Acetaminophen 650 mg 07/22/22 12:37 07/24/22 08:54 Acetaminophen 325 Mg Tablet PO 650 mg Q4H PRN Administration Pain 1-5 Hydrocodone Bitart/Acetaminophen 1 tab 07/23/22 00:01 07/25/22 10:49 Hydrocodone/Acetaminophen (*Crx) 5-325 Mg Tablet PO 1 tab Q4H PRN Administration Pain Rated 7-10 Dextrose 12.5 gm 07/20/22 16:10 Dextrose 50% 25 Gm/50 Ml Syringe IV PUSH PRN PRN Hypoglycemia Protocol Enoxaparin Sodium 40 mg 07/21/22 09:00 07/25/22 08:53 Enoxaparin 40 Mg/0.4 Ml Syringe SUB-Q 40 mg DAILY DL Administration Glucagon 1 mg 07/20/22 16:10 Glucagon For Inj 1 Mg Vial IM PRN PRN Hypoglycemia Protocol Glucose 15 gm 07/20/22 16:10 Glucose Oral Gel 15 Gm Of Glucse In 37.5 Gm Tube PO PRN PRN Hypoglycemia Protocol Dextrose 1,000 mls @ 100 mls/hr 07/20/22 16:10 Dextrose 5% 1,000 Ml IVPB PRN PRN Hypoglycemia Protocol Vancomycin HCl 1,750 mg in 500 mls @ 250 mls/hr 07/23/22 14:00 07/25/22 08:52 Vancomycin 1,750 Mg/D5w 500 Ml IVPB Infused Q8H DL Infusion Ceftriaxone Sodium 2 gm/ 100 mls @ 200 mls/hr 07/25/22 12:00 Sodium Chloride IVPB Q24H DL Insulin Aspart 2 - 5 units 07/20/22 17:00 07/25/22 08:54 Insulin Aspart (*Bkc) 100 Units/Ml SUB-Q 2 units TIDWM DL Administration Protocol Polyethylene Glycol 17 gm 07/21/22 17:08 Polyethylene Glycol 3350 17 Gm Powd.Pack PO QAM PRN Constipation Radiology Results: ITS Impressions Soft Tissue Ultrasound 07/23/22 14:19 IMPRESSION: 1. Mass in the lateral left calf, consistent with abscess versus hematoma. Labs Labs: Laboratory Results - last 24 hr 07/24/22 07/24/22 07/24/22 12:11 12:49 16
[2022-07-25] MEDS: cefTRIAXone 2 GM in SODIUM CHLORIDE 0.9% IV 100 ML 200 ML IVPB (11:24)
[2022-07-25 12:12] LABS: Glucose Point of Care 107 mg/dl (65-105)
[2022-07-25 14:26] VITALS: BP 102/62; PULSE 83; RESP 14; TEMP 36.4; O2SAT 98
[2022-07-25 17:19] LABS: Glucose Point of Care 125 mg/dl (65-105)
[2022-07-25 20:20] LABS: Glucose Point of Care 161 mg/dl (65-105)
[2022-07-25 20:21] VITALS: BP 136/77; PULSE 88; RESP 20; TEMP 36; O2SAT 98
[2022-07-26 04:24] VITALS: BP 113/69; PULSE 70; RESP 18; TEMP 35.7; O2SAT 98
[2022-07-26] MEDS: HYDROcodone/acetaminophen (*CRX) 5-325 MG TABLET 1 TAB PO (04:57)
[2022-07-26 06:16] LABS: Estimated CRCL calculation 117 ml/min; Estimated Glomerular Filt Rate > 60
[2022-07-26 08:47] LABS: Glucose Point of Care 85 mg/dl (65-105)
[2022-07-26 09:34] VITALS: RESP 18; O2SAT 98
[2022-07-26] MEDS: ENOXAPARIN 40 MG/0.4 ML SYRINGE SUB-Q (09:34)
--- NOTE | 2022-07-26 11:03 | PM.PNGS ---
Progress Note: A&P Assessment and Plan (1) Abscess of left leg: Code(s): L02.416 - Cutaneous abscess of left lower limb Status: Acute Assessment and Plan: Status post I and D doing well Wound recheck and redressed. Discussed with patient how to shower and how to wick the wound and dress it. He will try ambulating and if he is okay he will be discharged later today with oral medication for his MRSA infection. Hopefully after his 2:00 p.m. vanco dose. Probably can DC Rocephin now that final cultures back. (2) Cellulitis: Code(s): L03.90 - Cellulitis, unspecified Status: Acute Assessment and Plan: Improved with most of the redness extending along the patient's knee and thigh gone. Additional Plan Since we have cultures back patient could probably be switched to doxycycline p.o. and discharged to be followed up by Dr. Cordon mid to late next week. Would recommend at least 7 days of oral antibiotics upon discharge. Subjective Subjective Date/Time Seen: 07/26/22 10:03 Post Op day: 2 ( status post drainage of MRSA abscess left leg) Patient reports: no new complaints and feels better Interval history: patient has not been well up walking on his leg much. But he will try. He states the pain is much better. Patient is concerned about when he should return to work. Especially about getting the wound contaminated. This was discussed thoroughly. Review of Systems Review of Systems: All systems reviewed & are unremarkable except as noted in HPI and below Constitutional: Constitutional: Reports as per HPI, Denies chills and Denies fever(s) Cardiovascular: Cardiovascular: Denies chest pain and Denies dyspnea Respiratory: Respiratory: Reports no additional respiratory complaints and Denies dyspnea Gastrointestinal: Gastrointestinal: Reports as per HPI and Denies bloating Musculoskeletal: Musculoskeletal: Reports no additional musculoskeletal complaints Neurologic: Denies memory loss Psychiatric: Psychiatric: Denies anxiety and Denies memory loss Exam Narrative: Left lower extremity: Dressing removed. The opening from the I and D has about a 1 cm wide opening. There was reddish yellow drainage from the wound. It was wicked open with a small piece of the edge of a fluff ( 4 x 4) then several placed over it and wrapped with Kerlix roll. Patient should do this once a day after showering. Cellulitis significantly improved with no redness surrounding the wound at this time. Objective Data Vital Signs Vital Signs: Vital Signs - 24 hr 07/25/22 14:26 07/25/22 20:21 07/26/22 04:24 Temperature 36.4 C 36.0 C L 35.7 C L Pulse Rate 83 88 70 Respiratory Rate 14 20 18 Blood Pressure 102/62 136/77 113/69 Pulse Oximetry 98 98 98 Oxygen Delivery 07/26/22 09:34 Temperature Pulse Rate Respiratory Rate 18 Blood Pressure Pulse Oximetry 98 Oxygen Delivery Room Air Intake/Output Intake/Output: Intake & Output 07/23/22 07/24/22 07/25/22 07/26/22 23:59 23:59 23:59 23:59 Intake Total 4910 2840 3840 1840 Output Total 1850 1575 4925 1200 Balance 3060 1265 -1085 640 Meds/Results Medications: Active Medications Generic Name Dose Route Start Last Admin Trade Name Freq PRN Reason Stop Dose Admin Acetaminophen 650 mg 07/22/22 12:37 07/24/22 08:54 Acetaminophen 325 Mg Tablet PO 650 mg Q4H PRN Administration Pain 1-5 Hydrocodone Bitart/Acetaminophen 1 tab 07/23/22 00:01 07/26/22 04:57 Hydrocodone/Acetaminophen (*Crx) 5-325 Mg Tablet PO 1 tab Q4H PRN Administration Pain Rated 7-10 Dextrose 12.5 gm 07/20/22 16:10 Dextrose 50% 25 Gm/50 Ml Syringe IV PUSH PRN PRN Hypoglycemia Protocol Enoxaparin Sodium 40 mg 07/21/22 09:00 07/26/22 09:34 Enoxaparin 40 Mg/0.4 Ml Syringe SUB-Q 40 mg DAILY DL Administration Glucagon 1 mg 07/20/22 16:10 Glucagon For Inj 1 Mg Vial IM PRN PRN Hypoglycemia
[2022-07-26] MEDS: cefTRIAXone 2 GM in SODIUM CHLORIDE 0.9% IV 100 ML 200 ML IVPB (11:17)
--- NOTE | 2022-07-26 12:05 | PM.DS ---
DS: Admitting Diagnosis Discharge Date July 26, 2022 Admitting Diagnosis Cellulitis with abscess DS: Discharge Diagnosis Discharge Diagnosis (1) Cellulitis: Code(s): L03.90 - Cellulitis, unspecified Status: Acute Assessment and Plan: Status post I&D. Wound did grow MRSA. Patient was sent home on doxycycline orally. Follow-up with surgery (2) Pre-diabetes: Code(s): R73.03 - Prediabetes Status: Acute Assessment and Plan: Follow-up as outpatient DS: Summary Hospital Course Hospital Course: Patient was admitted for cellulitis with abscess. I&D was performed cultures grew MRSA. Patient was sent home on doxy Time Spent with Patient Time attestation: Total time spent providing and/or coordinating discharge services: Exam Narrative: General: Well-nourished, well-appearing 51-year-old male, sitting up in bed, comfortable, NARD Neuro: awake, alert and oriented x4, speech clear, no focal neuro deficits noted HEENMT: normocephalic, atraumatic, EOMI, sclerae anicteric, moist oral mucosa Respiratory: clear to auscultation bilaterally, nonlabored breathing Cardio: regular rate, regular rhythm with S1-S2 Abdomen: nondistended, normoactive bowel sounds, soft, nontender to palpation Extremities: Left lower extremity is markedly erythematous with 1+ edema extending to dorsum of left foot, warm and mildly tender to palpation, left knee and thigh with no erythema or edema, RLE no edema, erythema, or tenderness to palpation, DP pulses 2+ bilaterally Skin: Half dollar sized blistered area on proximal left anterolateral calf with scant serous fluid drainage, pinpoint dried scab on left knee, no rashes or lesions, warm and dry Psych: appropriate mood and affect, judgment and insight intact DS: Data Data Completed and Pending Labs on day of discharge: Labs from last 24 hours 07/26/22 07/26/22 07/25/22 08:43 04:57 20:13 Creatinine 0.80 Estim Creat Clear Calc 117 Estimated GFR > 60 POC Capillary Glucose 85 161 H 07/25/22 07/25/22 17:13 12:06 Creatinine Estim Creat Clear Calc Estimated GFR POC Capillary Glucose 125 H 107 H Preliminary micro results at discharge 07/24/22 15:43 Anaerobic Culture - Preliminary Abscess Aerobic Culture - Preliminary Staphylococcus aureus Discharge Plan Discharge Attending physician on discharge: Giuseppe Langston Consulting providers: Raymundo Prajapati ; Dahiana Cordon Discharging Clinician: Giuseppe Langston Patient Disposition: Home, Self-Care Activity: may shower and no preference Diet: as tolerated Discharge Instructions: surgery discharge instructions: 1. change dressing daily after shower. 2. Call office on Thursday set up appointment with Dr. Cordon for mid next week. 3. Off work until released from Dr. Christensen after office visit. 4. Elevate leg when sitting or lying 5. Call the office for consistently elevated fever greater than 100 F or significantly increase or recurrence of cellulitis on the left lower extremity. Review MRSA instructions and follow instructions regarding cleaning hands and handling dressings drain dressing changes. Stand Alone Forms: General Discharge Information Follow-up/Referrals: Dahiana Cordon MD [Physician] - Discharge Medications: New doxycycline hyclate 100 mg tablet 100 mg PO BID 7 Days Qty: 14 0RF No Action No Home Medications Date of admission: 07/20/22 14:22 Primary Care Provider: PHYSICIAN,PEDIATRIC DENTAL HYGIENIST Admitting Provider: Rohith Mackay Attending physician on admission: Rohith Mackay Condition: Stable
[2022-07-26 12:20] LABS: Glucose Point of Care 101 mg/dl (65-105)
[2022-07-26 14:00] VITALS: BP 111/62; PULSE 85; RESP 20; TEMP 36.4; O2SAT 98
== END 2022-07-26 16:40 | disposition home or self-care (01) | DRG 603 ==
LOC: ANHED 14:27 → ANH2MED 15:14
PROVIDERS: Nurse Practitioner; Physician Assistant; Surgery; Admitting Provider Family Medicine; Emergency Provider Emergency Medicine; Visit Provider Chiropractor
PROC: 0J9P0ZX Drainage of Left Lower Leg Subcutaneous Tissue and Fascia, Open Approach, Diagnostic (ICD-10-PCS; principal; 2022-07-24 14:30)
DX: L03.116 Cellulitis of left lower limb (principal); L02.416 Cutaneous abscess of left lower limb; M79.89 Other specified soft tissue disorders; B95.62 Methicillin resistant Staphylococcus aureus infection as the cause of diseases classified elsewhere; R73.03 Prediabetes; Z91.030 Bee allergy status
CPT/HCPCS: 36415; 76882; 80048; 80053; 80202; 82565; 82948; 83036; 83605; 85025; 85027; 86140; 87040; 87070; 87075; 87147; 87181; 87186; 87205; 90471; 90715; 96365; 99285; A9270; J0131; J0692; J0696; J1100; J1170; J1650; J1815; J1885; J1940; J2250; J2405; J2704; J3010; J3370; J7030; J7120

== ENCOUNTER 2022-08-19 07:07 | Outpatient (RCR) | payer BC, SELFPAY ==
[2022-08-05 13:33] VITALS: BMI 29.9
--- NOTE | 2022-08-05 13:33 | WPDWOUNDNOTE ---
Wound Care Note Date/Time: 08/05/22 13:33 History: 51 y/o M comes for recheck of wound s/p complex I and D necrotizing soft tissue infection of LLE. Pt reports wound seems to be healing well and is barely able to get any packing in at this point. Pt reports minimal to no drainage. Pt denies any f/c, n/v. Wound width: 1 Wound length: 1.5 Tunnelin.3 Percentage granulation tissue: 100 Assessment and Plan Assessment and plan (1) Necrotizing soft tissue infection: Code(s): M79.89 - Other specified soft tissue disorders Status: Acute Assessment and Plan: doing well, no further packing at this point, silver get and dry dressing, f/u 2 wks Review of Systems Review of Systems: All systems reviewed & are unremarkable except as noted in HPI and below Exam Const: General: cooperative, healthy appearing, comfortable and no acute distress Resp: Auscultation: clear to auscultation bilaterally Cardio: Rate: regular rate Rhythm: regular rhythm GI: Inspection: normal to inspection Skin: Other: 1x1.5x1.3 cm wound, no s/s active infection, no drainage
--- NOTE | 2022-08-19 12:36 | WPDWOUNDNOTE ---
Wound Care Note Date/Time: 08/19/22 12:36 History: no acute issues, reports wound is almost completely healed Wound width: 1.1 Wound length: 0.6 Wound depth: 0.2 Drainage: none Surrounding tissue appearance: healthy Tunneling: none Percentage granulation tissue: 100 Assessment and Plan Assessment and plan (1) Necrotizing soft tissue infection: Code(s): M79.89 - Other specified soft tissue disorders Status: Acute Assessment and Plan: doing well, local wound care c dry gillian, ok to rtw next wk, f/u prn Review of Systems Review of Systems: All systems reviewed & are unremarkable except as noted in HPI and below Exam Const: General: cooperative, healthy appearing, comfortable and no acute distress Resp: Auscultation: clear to auscultation bilaterally Cardio: Rate: regular rate Rhythm: regular rhythm GI: Inspection: normal to inspection Skin: Other: LE wound healing well - good granulation tissue, no s/s infection or drainage
== END 2022-10-21 08:20 | disposition home or self-care (01) ==
LOC: ANHWOC 07:07
PROVIDERS: PCP Family Medicine; Visit Provider Surgery
DX: M79.89 Other specified soft tissue disorders (principal)
CPT/HCPCS: 99212; G0463

== ENCOUNTER 2022-09-12 00:55 | Day surgery (SDC) | payer BC, SELFPAY ==
[2022-08-29 08:54] VITALS: BMI 30.6
[2022-09-12 11:18] VITALS: BP 107/70; PULSE 81; RESP 20; TEMP 36.2; O2SAT 99
--- NOTE | 2022-09-12 11:28 | P.PNAN_ITS ---
Anes - Initial Pre Proc Eval Procedure: Operation Date: 09/12/22 13:00 Proposed Procedures p Screening Colonoscopy - Michael Jordan MD Date/Time: 09/12/22 11:28 Surgeon: Michael Jordan MD Pre Op Diagnosis: neoplasm screening Patient Data Age: 52 Gender: M Height: 1.83 m Weight: 98.4 kg Last Vital Signs Temp 97.1 F L 09/12/22 11:18 Pulse 81 09/12/22 11:18 Resp 20 09/12/22 11:18 BP 107/70 09/12/22 11:18 Pulse Ox 99 09/12/22 11:18 O2 Del Method Room Air 09/12/22 11:18 Allergies Allergy/AdvReac Type Severity Reaction Status Date / Time bee venom protein (honey bee) Allergy Swelling Verified 09/12/22 11:17 of Lip/Tongue/Throat Home Medications Medication Instructions Recorded Confirmed Type No Home Medications 08/05/22 08/29/22 History Patient hx anesthesia problems: none Family hx anesthesia problems: none Results Review: All pre-operative results and documents have been reviewed as part of the pre- operative evaluation. 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 He is with 1child. He is Social drinker. He denies smoking marijuana or illicit drugs. His is the durable power email production specialist for healthcare. Code status full code Smoking status: Current some day smoker Tobacco type: e-cigarettes/vaping Smokeless tobacco user: other Alcohol intake: current Drinks per week: 2 Substance use: current Substance use type: marijuana Last use: Last week Living arrangements: with family Spiritual care concerns: No Anes - Eval Final PreProcedure Day of Procedure 09/12/22 11:28 Patient weight: normal Heart: regular rate and rhythm Lungs: clear to auscultation Airway: Mallampati scale class II Neurological: alert and oriented Last oral intake: >/= 8 hours ASA classification: II Emergent: no Anesthetic plan: proceed Anesthesia type and monitoring: general GIVS and standard monitoring Results Review: All pre-operative results and documents have been reviewed as part of the pre- operative evaluation. Informed Consent: The patient's anesthetic plan and its attendant risks and benefits were discussed with the patient/family/POA. Questions were solicited and answers provided to the satisfaction of the patient/family/POA.
[2022-09-12] MEDS: LACTATED RINGERS 1,000 ML 150 ML IV CONT (11:30)
--- NOTE | 2022-09-12 11:57 | PM.HPGS ---
History of Present Illness History of Present Illness Consent: Risks, benefits, and alternatives have been discussed and questions answered. Patient agrees to proceed with procedure. Chief complaint: neoplasm screening Narrative: Chalo Burch Jr. is a 52 year old male here for first screening colonoscopy Review of Systems Constitutional: Constitutional: Denies headache(s) and Denies weakness Eyes: Eyes: Denies blurry vision ENT: Reports Normal hearing present, Denies headache(s) and Denies neck pain Cardiovascular: Cardiovascular: Denies chest pain and Denies dyspnea Respiratory: Respiratory: Denies dyspnea Gastrointestinal: Gastrointestinal: Reports no additional gastrointestinal complaints Genitourinary: Genitourinary: Denies dysuria Musculoskeletal: Musculoskeletal: Denies neck pain Integumentary/Breasts: Skin/Breast: Denies dry skin Neurologic: Reports Normal hearing present, Denies headache(s) and Denies weakness Psychiatric: Psychiatric: Denies anxiety Endocrine: Endocrine: Denies change in body appearance Hematologic/Lymphatic: Hematologic/Lymphatic: Denies easy bleeding Allergic/Immunologic: Allergic/Immunologic: Denies urticaria PMFSH Past Medical History Medical History (Updated 09/12/22 @ 11:57 by Michael Jordan MD) Cellulitis Colon cancer screening Skin cancer screening Surgical History Surgical History No pertinent past surgical history Family History Family History Other Diabetes mellitus Family history of malignant neoplasm Social History Social History Social History: 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 He is with 1child. He is Social drinker. He denies smoking marijuana or illicit drugs. His is the durable power energy attorney for healthcare. Code status full code Smoking status: Current some day smoker Tobacco type: e-cigarettes/vaping Smokeless tobacco user: other Alcohol intake: current Drinks per week: 2 Substance use: current Substance use type: marijuana Last use: Last week Living arrangements: with family Spiritual care concerns: No Meds Home Medications and Allergies Home Medications Medication Instructions Recorded Confirmed Type No Home Medications 08/05/22 08/29/22 History Allergies Allergy/AdvReac Type Severity Reaction Status Date / Time bee venom protein (honey bee) Allergy Swelling Verified 09/12/22 11:17 of Lip/Tongue/Throat Vital Signs Vital Signs - 24 hr 09/12/22 11:18 Temperature 97.1 F L Pulse Rate 81 Respiratory Rate 20 Blood Pressure 107/70 Pulse Oximetry 99 Oxygen Delivery Room Air Exam Const: General: comfortable and no acute distress HENMT: Face/Nose/Sinus: Normal nares present Eyes: General: appearance normal, both eyes and all related structures Neck: Neck: no JVD Resp: Auscultation: clear to auscultation bilaterally Cardio: Rate: regular rate Rhythm: regular rhythm GI: Inspection: non-distended GI Palp: Yes Soft to palpation Skin: General skin exam: normal color Neuro: General: gait normal Speech: normal speech Extrem: General: normal to inspection Psych: Mental Status: mental status grossly normal Assessment and Plan Assessment and plan (1) Colon cancer screening: Code(s): Z12.11 - Encounter for screening for malignant neoplasm of colon Status: Acute Assessment and Plan: colonoscopy
[2022-09-12 12:18] VITALS: BP 104/78; PULSE 74; RESP 13; O2SAT 99
[2022-09-12 12:28] VITALS: BP 114/87; PULSE 94; RESP 22; O2SAT 99
[2022-09-12 12:38] VITALS: BP 120/92; PULSE 75; RESP 17; O2SAT 97
== END 2022-09-12 12:52 | disposition home or self-care (01) ==
PROVIDERS: PCP Family Medicine; Visit Provider Internal Medicine Gastroenterology
PROC: 0DJD8ZZ Inspection of Lower Intestinal Tract, Via Natural or Artificial Opening Endoscopic (ICD-10-PCS; CPT 45378; principal; 2022-09-12 13:00)
DX: Z12.11 Encounter for screening for malignant neoplasm of colon (principal); K64.8 Other hemorrhoids; F17.210 Nicotine dependence, cigarettes, uncomplicated
CPT/HCPCS: 45378; J2001; J2704; J7120

== ENCOUNTER 2022-09-29 14:09 | Outpatient (CLI) | payer BC, SELFPAY ==
[2022-09-29 19:13] LABS: Alanine Aminotransferase 28 U/L (6-50); Albumin Level 4.3 g/dL (3.5-5.1); Alkaline Phosphatase 62 U/L (38-126); Anion Gap 14 mmol/L (8-16); Aspartate Amino Transferase 31 U/L (17-59); Bilirubin,Total 0.1 mg/dL (0.2-1.3); Blood Urea Nitrogen 17 mg/dL (9-20); Carbon Dioxide 25 mmol/L (22-30); Chloride 104 mmol/L (98-107); Cholesterol 157 mg/dL (0-200); Estimated Glomerular Filt Rate > 60; Glucose 97 mg/dL (65-110); HDL Direct 51 mg/dL; Sodium 143 mmol/L (137-145); Triglycerides 122 mg/dL (<150)
[2022-09-29 19:23] LABS: LDL Cholesterol Direct 71 mg/dL
== END 2022-09-29 14:10 | disposition home or self-care (01) ==
LOC: ANHGOSHLAB 14:11
PROVIDERS: PCP Family Medicine; Visit Provider Family Medicine
DX: Z13.228 Encounter for screening for other metabolic disorders (principal); Z13.220 Encounter for screening for lipoid disorders; R73.03 Prediabetes; Z13.29 Encounter for screening for other suspected endocrine disorder
CPT/HCPCS: 36415; 80053; 80061; 83036; 84443